=== PATIENT | female | born 1980 | race Caucasian/White ===

== ENCOUNTER 2016-03-06 19:13 | Emergency (ER) | payer BC ==
[~2016-03-06] VITALS: Ht 160 cm; Wt 104.5 kg
[~2016-03-06 19:13] MED LIST: AMBIEN 10MG10 MG PO; ATIVAN 0.50.5 MG/TAB PO; IMITREX100 MG PO; LAMICTAL200 MG PO; LEXAPRO20 MG PO; MULTI VITAMINS1 TAB PO; NORCO 325 MG-51 TAB PO; PHENERGAN 25 TA25 MG PO; PRILOSEC 20MG20 MG PO; PROZAC40 MG PO; XANAX .25M0.25 MG/TA PO; ZOFRAN 4MG T4 MG/TAB PO; ZOFRAN ODT4 MG PO
[2016-03-06 19:19] VITALS: TEMP 98
[2016-03-06] MEDS ORDERED: KLONOPIN 0.5MG0.5 MG PO ×2 (19:23)
[2016-03-06] MEDS ORDERED: DEPAKOTE 250MG250 MG PO (19:24)
[2016-03-06 20:17] LABS: BASO # 0.1 (0.0-0.2); BASO % 0.9 % (0.0-2.0); EOS # 0.1 (0.0-0.7); GRAN # 4.8 (1.4-6.5); GRAN % 58.2 % (42.2-75.2); HEMATOCRIT 37.9 % (37.0-47.0); HEMOGLOBIN 12.9 g/dl (12.5-16.0); LYMPH # 2.7 (1.2-3.4); LYMPH % 32.6 % (20.0-51.0); MEAN CELL VOLUME 93 fl (80.0-100.0); MEAN CORPUSCULAR HEMOGLOBIN 32 pg (27.0-31.0); MEAN CORPUSCULAR HGB CONC 34 g/dl (33.0-37.0); MEAN PLATELET VOLUME 11.2 fl (7.4-10.4); MONO # 0.6 (0.1-0.6); MONO % 7.1 % (1.7-9.3); PLATELET COUNT 250 K/mm3 (130-400); RED BLOOD COUNT 4.09 M/mm3 (4.10-5.30); REDCELL DISTRIBUTION WIDTH-CV 11.9 % (11.5-14.5); WHITE BLOOD COUNT 8.2 K/mm3 (4.8-10.8)
[2016-03-06 20:31] LABS: PH 5 (5-8); URINE APPEARANCE Hazy; URINE BACTERIA Rare /hpf; URINE BILIRUBIN Negative (NEGATIVE); URINE BLOOD Negative (NEGATIVE); URINE COLOR Yellow; URINE GLUCOSE Negative (NEGATIVE); URINE KETONE Trace (NEGATIVE); URINE RBC 0-2 /hpf; URINE UROBILINOGEN Negative (NEGATIVE)
[2016-03-06 20:32] LABS: ADJUSTED CALCIUM 9.1 mg/dL (8.4-10.2); ALBUMIN 3.9 gm/dL (3.5-5.0); BILIRUBIN,TOTAL 0.6 mg/dL (0.0-1.0); CREATININE, serum 0.77 mg/dL (0.52-1.25); POTASSIUM 3.6 mmol/L (3.4-5.0); TOTAL PROTEIN 6.7 gm/dL (6.4-8.2)
[2016-03-06 20:34] LABS: C-REACTIVE PROTEIN 0.5 mg/dL (0.0-0.9)
[2016-03-06] MEDS ORDERED: NORCO 325 MG-51 TAB PO (20:44)
[2016-03-06] MEDS ORDERED: FLEXERIL 1010 MG/TAB PO (20:44)
[2016-03-06 21:00] VITALS: BP 127/84; PULSE 87
== END 2016-03-06 21:01 | disposition home or self-care (01) ==
LOC: COL.ER 19:13
PROVIDERS: Emergency Medicine
DX: R10.84 Generalized abdominal pain (principal); M54.89 Other dorsalgia; R11.2 Nausea with vomiting, unspecified; Z98.84 Bariatric surgery status
CPT/HCPCS: J2765; J3010; J7030

== ENCOUNTER → 2016-04-06 | Outpatient (CLI) | payer BC ==
[~2016-04-06] MED LIST changes: +ATARAX50 MG PO; +DEPAKOTE 250MG250 MG PO; +DEPAKOTE500 MG PO; +FLEXERIL 1010 MG/TAB PO; +KLONOPIN 0.5MG0.5 MG PO; +LUVOX100 MG PO; +SYNTHROID0.05 MG/TA PO; +VITAMIN B-2 100MG
== END ==
LOC: BHSO 15:32
DX: F31.4 Bipolar disorder, current episode depressed, severe, without psychotic features (principal)

== ENCOUNTER → 2016-04-28 | Outpatient (CLI) | payer BC | LOC: BHSO 11:36 | DX: F31.32 Bipolar disorder, current episode depressed, moderate (principal) ==

== ENCOUNTER → 2016-05-16 | Outpatient (CLI) | payer BC | LOC: BHSO 12:46 | DX: F31.32 Bipolar disorder, current episode depressed, moderate (principal) ==

== ENCOUNTER → 2016-05-30 | Outpatient (CLI) | payer BC | LOC: BHSO 14:46 | DX: F31.81 Bipolar II disorder (principal) ==

== ENCOUNTER → 2016-06-08 | Outpatient (CLI) | payer BC | LOC: BHSO 14:51 | DX: F31.31 Bipolar disorder, current episode depressed, mild (principal) ==

== ENCOUNTER → 2016-07-07 | Outpatient (CLI) | payer BC | LOC: BHSO 10:43 | DX: F31.81 Bipolar II disorder (principal) ==

== ENCOUNTER → 2016-07-12 | Outpatient (CLI) | payer BC | LOC: BHSO 14:00 | DX: F31.31 Bipolar disorder, current episode depressed, mild (principal) ==

== ENCOUNTER → 2016-08-04 | Outpatient (CLI) | payer BC | LOC: BHSO 09:49 | DX: F33.2 Major depressive disorder, recurrent severe without psychotic features (principal) ==

== ENCOUNTER → 2016-08-07 | Outpatient (CLI) | payer BC | LOC: BHSO 11:03 | DX: F60.3 Borderline personality disorder (principal) ==

== ENCOUNTER 2016-08-13 23:32 | Emergency (ER) | payer BC ==
[~2016-08-13] VITALS: Ht 160 cm; Wt 97.7 kg
[~2016-08-13 23:32] MED LIST changes: -ATARAX50 MG PO; -DEPAKOTE500 MG PO; -LUVOX100 MG PO; -SYNTHROID0.05 MG/TA PO; -VITAMIN B-2 100MG
[2016-08-13 23:35] VITALS: TEMP 99
[2016-08-13 23:52] LABS: BASO # 0.1 (0.0-0.2); BASO % 0.5 % (0.0-2.0); EOS # 0.1 (0.0-0.7); EOS % 0.7 % (0-4.0); GRAN # 4.7 (1.4-6.5); GRAN % 49.3 % (42.2-75.2); HEMATOCRIT 38.8 % (37.0-47.0); HEMOGLOBIN 13.4 g/dl (12.5-16.0); LYMPH # 3.9 (1.2-3.4); LYMPH % 40.3 % (20.0-51.0); MEAN CELL VOLUME 90 fl (80.0-100.0); MEAN CORPUSCULAR HEMOGLOBIN 31 pg (27.0-31.0); MEAN CORPUSCULAR HGB CONC 35 g/dl (33.0-37.0); MEAN PLATELET VOLUME 10.8 fl (7.4-10.4); MONO # 0.9 (0.1-0.6); MONO % 8.8 % (1.7-9.3); PLATELET COUNT 227 K/mm3 (130-400); RED BLOOD COUNT 4.33 M/mm3 (4.10-5.30); WHITE BLOOD COUNT 9.6 K/mm3 (4.8-10.8)
[2016-08-14 00:02] LABS: ADJUSTED CALCIUM 8.8 mg/dL (8.4-10.2); ALANINE AMINOTRANSFERASE 21 U/L (9-52); ALBUMIN 3.9 gm/dL (3.5-5.0); ALKALINE PHOSPHATASE 38 U/L (50-136); ANION GAP 11 mmol/L (7-16); BILIRUBIN,TOTAL 0.5 mg/dL (0.0-1.0); BLOOD UREA NITROGEN 21 mg/dL (7-17); CALCIUM 8.7 mg/dL (8.4-10.2); CARBON DIOXIDE 21 mmol/L (22-30); CHLORIDE 105 mmol/L (98-107); CREATININE, serum 1.19 mg/dL (0.52-1.25); GLUCOSE 98 mg/dL (74-106); POTASSIUM 4.2 mmol/L (3.4-5.0); SODIUM 137 mmol/L (137-145); TOTAL PROTEIN 6.5 gm/dL (6.4-8.2)
[2016-08-14] MEDS ORDERED: AMBIEN 10MG10 MG PO (00:02)
[2016-08-14] MEDS ORDERED: ATARAX50 MG PO (00:02)
[2016-08-14] MEDS ORDERED: KLONOPIN 0.5MG0.5 MG PO ×2 (00:03)
[2016-08-14] MEDS ORDERED: LUVOX100 MG PO (00:04)
[2016-08-14] MEDS ORDERED: DEPAKOTE500 MG PO (00:04)
[2016-08-14] MEDS ORDERED: VITAMIN B-2 100MG (00:05)
[2016-08-14 00:06] LABS: SALICYLATE < 1.0 mg/dL
[2016-08-14 00:08] LABS: ACETAMINOPHEN 59 ug/mL (10-30)
[2016-08-14 00:23] LABS: INR 0.9 (0.8-3.0); PROTHROMBIN TIME 10.2 SECONDS (9.7-12.8)
[2016-08-14 00:43] LABS: AMPHETAMINE URINE NEGATIVE; BARBITURATES URINE NEGATIVE; BENZODIAZEPINES URINE NEGATIVE; BUPRENORPHINE URINE NEGATIVE; METHADONE URINE NEGATIVE; OPIATES URINE NEGATIVE; OXYCODONE URINE NEGATIVE; PHENCYCLIDINE URINE NEGATIVE; PROPOXYPHENE URINE NEGATIVE; THC CANNABINOIDS URINE NEGATIVE
[2016-08-14 04:18] VITALS: BP 100/80; PULSE 94
[2016-08-14] MEDS ORDERED: SYNTHROID0.05 MG/TA PO (04:33)
== END 2016-08-14 04:44 | disposition home or self-care (01) ==
LOC: COL.ER 23:32
PROVIDERS: Nurse Practitioner
DX: T39.1X2A Poisoning by 4-Aminophenol derivatives, intentional self-harm, initial encounter (principal); F32.9 Major depressive disorder, single episode, unspecified; E03.9 Hypothyroidism, unspecified
CPT/HCPCS: J7030

== ENCOUNTER → 2016-08-22 | Outpatient (CLI) | payer BC ==
[~2016-08-22] MED LIST changes: +ATARAX50 MG PO; +DEPAKOTE500 MG PO; +LUVOX100 MG PO; +SYNTHROID0.05 MG/TA PO; +VITAMIN B-2 100MG
== END ==
LOC: BHSO 08:58
DX: F31.31 Bipolar disorder, current episode depressed, mild (principal)

== ENCOUNTER → 2016-08-28 | Outpatient (CLI) | payer BC | LOC: BHSO 14:26 | DX: F31.73 Bipolar disorder, in partial remission, most recent episode manic (principal) ==

== ENCOUNTER → 2016-09-08 | Outpatient (CLI) | payer BC | LOC: BHSO 14:01 | DX: F31.31 Bipolar disorder, current episode depressed, mild (principal) ==

== ENCOUNTER → 2016-09-22 | Outpatient (CLI) | payer BC | LOC: BHSO 13:54 | DX: F31.31 Bipolar disorder, current episode depressed, mild (principal) ==

== ENCOUNTER → 2016-09-25 | Outpatient (CLI) | payer BC | LOC: BHSO 15:19 | DX: F31.81 Bipolar II disorder (principal) ==

== ENCOUNTER → 2016-10-13 | Outpatient (CLI) | payer BC | LOC: BHSO 13:57 | DX: F31.31 Bipolar disorder, current episode depressed, mild (principal) ==

== ENCOUNTER → 2016-10-20 | Outpatient (CLI) | payer BC | LOC: BHSO 13:58 | DX: F31.31 Bipolar disorder, current episode depressed, mild (principal) ==

== ENCOUNTER → 2016-11-01 | Outpatient (CLI) | payer BC | LOC: BHSO 15:40 | DX: F31.81 Bipolar II disorder (principal) ==

== ENCOUNTER → 2016-11-28 | Outpatient (CLI) | payer BC | LOC: BHSO 09:06 | DX: F31.81 Bipolar II disorder (principal) ==

== ENCOUNTER 2016-12-16 10:24 | Observation (INO) | payer BC ==
[~2016-12-16] VITALS: Ht 162.6 cm; Wt 113.2 kg
[2016-12-16] VITALS (374 sets, daily range): BP systolic 118–121; BP diastolic 80–90; PULSE 96–100; TEMP 97.8–98.1; O2SAT 96–100
[2016-12-16 10:50] LABS: BASO % 0.5 % (0.0-2.0); EOS % 0.3 % (0-4.0); GRAN # 3.8 (1.4-6.5); HEMATOCRIT 39.7 % (37.0-47.0); HEMOGLOBIN 13.3 g/dl (12.5-16.0); LYMPH # 2.3 (1.2-3.4); LYMPH % 35.3 % (20.0-51.0); MEAN CELL VOLUME 94 fl (80.0-100.0); MEAN CORPUSCULAR HEMOGLOBIN 32 pg (27.0-31.0); MEAN CORPUSCULAR HGB CONC 34 g/dl (33.0-37.0); MEAN PLATELET VOLUME 11.2 fl (7.4-10.4); MONO # 0.3 (0.1-0.6); MONO % 5.1 % (1.7-9.3); PLATELET COUNT 201 K/mm3 (130-400); RED BLOOD COUNT 4.21 M/mm3 (4.10-5.30); REDCELL DISTRIBUTION WIDTH-CV 13.2 % (11.5-14.5); WHITE BLOOD COUNT 6.5 K/mm3 (4.8-10.8)
[2016-12-16 11:47] LABS: ALANINE AMINOTRANSFERASE 15 U/L (9-52); ALKALINE PHOSPHATASE 41 U/L (50-136); ANION GAP 13 mmol/L (7-16); BILIRUBIN,TOTAL 0.6 mg/dL (0.0-1.0); BLOOD UREA NITROGEN 11 mg/dL (7-17); CARBON DIOXIDE 20 mmol/L (22-30); CHLORIDE 106 mmol/L (98-107); CREATININE, serum 0.98 mg/dL (0.52-1.25); GLUCOSE 112 mg/dL (74-106); MAGNESIUM 1.7 mg/dL (1.6-2.3); POTASSIUM 3.4 mmol/L (3.4-5.0); SODIUM 139 mmol/L (137-145); TOTAL PROTEIN 6.8 gm/dL (6.4-8.2)
[2016-12-16 11:54] LABS: ACETAMINOPHEN < 10 ug/mL (10-30); SALICYLATE < 1.0 mg/dL
[2016-12-16 13:56] LABS: AMPHETAMINE URINE NEGATIVE; BARBITURATES URINE NEGATIVE; BENZODIAZEPINES URINE NEGATIVE; BUPRENORPHINE URINE NEGATIVE; METHADONE URINE NEGATIVE; OPIATES URINE NEGATIVE; OXYCODONE URINE NEGATIVE; PHENCYCLIDINE URINE NEGATIVE; PROPOXYPHENE URINE NEGATIVE; THC CANNABINOIDS URINE NEGATIVE
[2016-12-16] MEDS ORDERED: DEPAKOTE ER 50500 MG PO (14:36)
[2016-12-16] MEDS ORDERED: SEROQUEL 200MG200 MG PO (14:39)
[2016-12-16] MEDS ORDERED: DESYREL 100MG100 MG PO (14:40)
[2016-12-16] MEDS ORDERED: NEURONTIN300 MG/CAP PO (14:40)
[2016-12-16] MEDS ORDERED: KRILL OIL 3001 EACH PO (14:41)
[2016-12-16] MEDS ORDERED: BIOTIN10000 MC1 PO (14:42)
[2016-12-17] VITALS (418 sets, daily range): BP systolic 98–113; BP diastolic 57–69; PULSE 78–94; TEMP 97.2–97.7; O2SAT 94–100
[2016-12-17] MEDS ORDERED: EFFEXOR 75M75 MG/TAB PO (11:55)
[2016-12-17] MEDS ORDERED: VALIUM 10MG10 MG/TAB PO (11:55)
== END 2016-12-17 13:45 | disposition home or self-care (01) ==
LOC: COL.ER 10:24 → ICU 13:50
PROVIDERS: Emergency Medicine
DX: T45.0X2A Poisoning by antiallergic and antiemetic drugs, intentional self-harm, initial encounter (principal); F32.9 Major depressive disorder, single episode, unspecified; M79.605 Pain in left leg; Z86.718 Personal history of other venous thrombosis and embolism; F31.89 Other bipolar disorder; F41.1 Generalized anxiety disorder; F60.3 Borderline personality disorder; F40.01 Agoraphobia with panic disorder
CPT/HCPCS: 99239; G0378; J1650; J7030

== ENCOUNTER → 2016-12-22 | Outpatient (CLI) | payer BC ==
[~2016-12-22] MED LIST changes: +BIOTIN10000 MC1 PO; +DEPAKOTE ER 50500 MG PO; +DESYREL 100MG100 MG PO; +EFFEXOR 75M75 MG/TAB PO; +KRILL OIL 3001 EACH PO; +NEURONTIN300 MG/CAP PO; +SEROQUEL 200MG200 MG PO; +VALIUM 10MG10 MG/TAB PO
== END ==
LOC: BHSO 11:17
DX: F31.81 Bipolar II disorder (principal)

== ENCOUNTER → 2016-12-25 | Outpatient (CLI) | payer BC | LOC: BHSO 15:58 | DX: F60.3 Borderline personality disorder (principal) ==

== ENCOUNTER → 2017-01-23 | Outpatient (CLI) | payer BC | LOC: BHSO 10:00 | DX: F31.31 Bipolar disorder, current episode depressed, mild (principal) ==

== ENCOUNTER → 2017-01-24 | Outpatient (CLI) | payer BC | LOC: BHSO 13:28 | DX: F31.81 Bipolar II disorder (principal) ==

== ENCOUNTER → 2017-03-12 | Outpatient (CLI) | payer OTHER | LOC: COL.RAD 09:25 | DX: Z02.71 Encounter for disability determination (principal); M51.36 Other intervertebral disc degeneration, lumbar region; M51.34 Other intervertebral disc degeneration, thoracic region ==

== ENCOUNTER → 2017-03-14 | Outpatient (CLI) | payer BC | LOC: BHSO 10:55 | DX: F33.2 Major depressive disorder, recurrent severe without psychotic features (principal) ==

== ENCOUNTER → 2017-03-20 | Outpatient (CLI) | payer BC | LOC: BHSO 15:15 | DX: F31.81 Bipolar II disorder (principal) | CPT/HCPCS: G0463 ==

== ENCOUNTER → 2017-03-27 | Outpatient (CLI) | payer BC | LOC: BHSO 13:02 | DX: F31.31 Bipolar disorder, current episode depressed, mild (principal) ==

== ENCOUNTER → 2017-04-04 | Outpatient (CLI) | payer BC | LOC: BHSO 10:48 | DX: F31.31 Bipolar disorder, current episode depressed, mild (principal) ==

== ENCOUNTER 2017-04-15 19:14 | Emergency (ER) | payer BC ==
[~2017-04-15] VITALS: Ht 162.6 cm; Wt 122.7 kg
[2017-04-15 19:20] VITALS: TEMP 97.8
[2017-04-15] MEDS ORDERED: LIORESAL 1010 MG/TAB PO (22:18)
[2017-04-15 22:30] VITALS: BP 137/86; PULSE 101
== END 2017-04-15 22:30 | disposition home or self-care (01) ==
LOC: COL.ER 19:14
DX: G89.29 Other chronic pain (principal); M54.5 Low back pain; M62.830 Muscle spasm of back; F31.9 Bipolar disorder, unspecified; F41.9 Anxiety disorder, unspecified; E03.9 Hypothyroidism, unspecified; Z87.39 Personal history of other diseases of the musculoskeletal system and connective tissue; Z98.51 Tubal ligation status; Z90.89 Acquired absence of other organs; Z98.890 Other specified postprocedural states; X50.0XXA Overexertion from strenuous movement or load, initial encounter
CPT/HCPCS: J1170

== ENCOUNTER → 2017-04-17 | Outpatient (CLI) | payer BC ==
[~2017-04-17] MED LIST changes: +LIORESAL 1010 MG/TAB PO
== END ==
LOC: BHSO 13:56
DX: F31.31 Bipolar disorder, current episode depressed, mild (principal)

== ENCOUNTER → 2017-05-08 | Outpatient (CLI) | payer BC | LOC: MHCPAIN 11:26 | DX: G89.29 Other chronic pain (principal); M47.817 Spondylosis without myelopathy or radiculopathy, lumbosacral region; M53.3 Sacrococcygeal disorders, not elsewhere classified; M25.561 Pain in right knee | CPT/HCPCS: G0463 ==

== ENCOUNTER → 2017-05-30 | Outpatient (CLI) | payer BC | LOC: BHSO 13:58 | DX: F31.31 Bipolar disorder, current episode depressed, mild (principal) ==

== ENCOUNTER → 2017-07-03 | Outpatient (CLI) | payer BC | LOC: MHCPAIN 12:46 | DX: G89.29 Other chronic pain (principal); M47.817 Spondylosis without myelopathy or radiculopathy, lumbosacral region; M53.3 Sacrococcygeal disorders, not elsewhere classified; M25.561 Pain in right knee | CPT/HCPCS: G0463 ==

== ENCOUNTER → 2017-07-06 | Outpatient (CLI) | payer BC | LOC: BHSO 09:22 | DX: F31.81 Bipolar II disorder (principal) | CPT/HCPCS: G0463 ==

== ENCOUNTER → 2017-07-09 | Outpatient (CLI) | payer BC | LOC: BHSO 16:03 | DX: F31.11 Bipolar disorder, current episode manic without psychotic features, mild (principal) ==

== ENCOUNTER → 2017-07-19 | Outpatient (CLI) | payer BC | LOC: MHCPAIN 09:58 | DX: M47.817 Spondylosis without myelopathy or radiculopathy, lumbosacral region (principal); M46.96 Unspecified inflammatory spondylopathy, lumbar region | CPT/HCPCS: J1040; J2250; J3010; Q9967 ==

== ENCOUNTER → 2017-08-17 | Outpatient (CLI) | payer BC | LOC: BHSO 14:52 | DX: F31.11 Bipolar disorder, current episode manic without psychotic features, mild (principal) ==

== ENCOUNTER → 2017-10-11 | Outpatient (CLI) | payer BC | LOC: BHSO 14:33 | DX: F31.81 Bipolar II disorder (principal) | CPT/HCPCS: G0463 ==

== ENCOUNTER → 2017-10-15 | Outpatient (CLI) | payer BC | LOC: BHSO 13:52 | DX: F31.31 Bipolar disorder, current episode depressed, mild (principal) ==

== ENCOUNTER → 2017-10-22 | Outpatient (CLI) | payer BC | LOC: BHSO 13:55 | DX: F31.11 Bipolar disorder, current episode manic without psychotic features, mild (principal) ==

== ENCOUNTER → 2017-10-30 | Outpatient (CLI) | payer BC | LOC: BHSO 13:48 | DX: F31.31 Bipolar disorder, current episode depressed, mild (principal) ==

== ENCOUNTER → 2017-11-06 | Outpatient (CLI) | payer BC | LOC: BHSO 13:55 | DX: F31.31 Bipolar disorder, current episode depressed, mild (principal) ==

== ENCOUNTER → 2017-11-28 | Outpatient (CLI) | payer BC | LOC: MHCPAIN 13:38 | DX: G89.29 Other chronic pain (principal); M47.817 Spondylosis without myelopathy or radiculopathy, lumbosacral region; M53.3 Sacrococcygeal disorders, not elsewhere classified | CPT/HCPCS: G0463 ==

== ENCOUNTER → 2017-12-03 | Outpatient (CLI) | payer BC ==
[~2017-12-03] MED LIST changes: +BELSOMRA20 MG PO; +PERCOCET 325 MG1 TA2 PO; +PRAVACHOL 40MG40 MG PO; +VOLTAREN 75 DR75 MG PO
== END ==
LOC: BHSO 13:57
DX: F31.11 Bipolar disorder, current episode manic without psychotic features, mild (principal)

== ENCOUNTER → 2017-12-04 | Outpatient (CLI) | payer BC | LOC: BHSO 14:13 | DX: F31.81 Bipolar II disorder (principal) | CPT/HCPCS: G0463 ==

== ENCOUNTER 2017-12-10 09:58 | Emergency (ER) | payer BC ==
[~2017-12-10] VITALS: Ht 162.6 cm; Wt 125.5 kg
[~2017-12-10 09:58] MED LIST changes: -BELSOMRA20 MG PO; -PERCOCET 325 MG1 TA2 PO; -PRAVACHOL 40MG40 MG PO; -VOLTAREN 75 DR75 MG PO
[2017-12-10 10:02] VITALS: TEMP 98.5
[2017-12-10] MEDS ORDERED: BELSOMRA20 MG PO (10:19)
[2017-12-10] MEDS ORDERED: PRAVACHOL 40MG40 MG PO (10:19)
[2017-12-10 10:44] LABS: BASO % 0.7 % (0.0-2.0); EOS # 0.1 (0.0-0.7); EOS % 1.5 % (0-4.0); GRAN # 2.7 (1.4-6.5); GRAN % 49.7 % (42.2-75.2); HEMOGLOBIN 11.7 g/dl (12.5-16.0); LYMPH # 2.1 (1.2-3.4); LYMPH % 39.4 % (20.0-51.0); MEAN CELL VOLUME 97 fl (80.0-100.0); MEAN CORPUSCULAR HEMOGLOBIN 32 pg (27.0-31.0); MEAN CORPUSCULAR HGB CONC 33 g/dl (33.0-37.0); MEAN PLATELET VOLUME 11.4 fl (7.4-10.4); MONO # 0.4 (0.1-0.6); MONO % 7.8 % (1.7-9.3); PLATELET COUNT 195 K/mm3 (130-400); RED BLOOD COUNT 3.64 M/mm3 (4.10-5.30); REDCELL DISTRIBUTION WIDTH-CV 12.3 % (11.5-14.5)
[2017-12-10 10:46] LABS: HEMATOCRIT 35.4 % (37.0-47.0)
[2017-12-10 10:49] LABS: INR 0.9 (0.8-3.0); PROTHROMBIN TIME 9.8 SECONDS (9.7-12.8)
[2017-12-10 10:52] LABS: PARTIAL THROMBOPLASTIN TIME 29.3 SECONDS (26.0-37.0)
[2017-12-10 10:55] LABS: D-DIMER < 200.00 ng/mLDDu (200-230)
[2017-12-10 10:59] LABS: ALANINE AMINOTRANSFERASE 19 U/L (9-52); ALBUMIN 3.4 gm/dL (3.5-5.0); ALKALINE PHOSPHATASE 41 U/L (50-136); ANION GAP 5 mmol/L (7-16); AST,SGOT 17 U/L (15-37); BILIRUBIN,TOTAL 0.2 mg/dL (0.0-1.0); BLOOD UREA NITROGEN 9 mg/dL (7-17); CALCIUM 8.6 mg/dL (8.4-10.2); CARBON DIOXIDE 30 mmol/L (22-30); CHLORIDE 102 mmol/L (98-107); CREATININE, serum 0.76 mg/dL (0.52-1.25); GLUCOSE 88 mg/dL (74-106); POTASSIUM 3.9 mmol/L (3.4-5.0); SODIUM 137 mmol/L (137-145); TOTAL PROTEIN 6.1 gm/dL (6.4-8.2)
[2017-12-10 11:11] LABS: TROPONIN-I < 0.012 ng/mL (0.000-0.034)
[2017-12-10] MEDS ORDERED: PERCOCET 325 MG1 TA2 PO (14:49)
[2017-12-10] MEDS ORDERED: VOLTAREN 75 DR75 MG PO (14:58)
[2017-12-10 15:06] VITALS: BP 117/79; PULSE 79
== END 2017-12-10 15:06 | disposition home or self-care (01) ==
LOC: COL.ER 09:58
PROVIDERS: Family Medicine
DX: R07.9 Chest pain, unspecified (principal); F32.9 Major depressive disorder, single episode, unspecified; F41.9 Anxiety disorder, unspecified; E78.5 Hyperlipidemia, unspecified
CPT/HCPCS: J1885

== ENCOUNTER → 2018-01-04 | Outpatient (CLI) | payer BC ==
[~2018-01-04] MED LIST changes: +BELSOMRA20 MG PO; +PERCOCET 325 MG1 TA2 PO; +PRAVACHOL 40MG40 MG PO; +VOLTAREN 75 DR75 MG PO
== END ==
LOC: BHSO 15:03
DX: F31.81 Bipolar II disorder (principal)

== ENCOUNTER → 2018-01-17 | Outpatient (CLI) | payer BC | LOC: MHCPAIN 13:11 | DX: M47.817 Spondylosis without myelopathy or radiculopathy, lumbosacral region (principal); M54.16 Radiculopathy, lumbar region ==

== ENCOUNTER → 2018-01-22 | Outpatient (CLI) | payer BC | LOC: MHCPAIN 07:57 | DX: G89.29 Other chronic pain (principal); M47.817 Spondylosis without myelopathy or radiculopathy, lumbosacral region; M53.3 Sacrococcygeal disorders, not elsewhere classified | CPT/HCPCS: G0463 ==

== ENCOUNTER → 2018-02-01 | Outpatient (CLI) | payer BC | LOC: BHSO 14:59 | DX: F31.11 Bipolar disorder, current episode manic without psychotic features, mild (principal) ==

== ENCOUNTER → 2018-02-04 | Outpatient (CLI) | payer BC | LOC: MHCPAIN 10:40 | DX: M47.817 Spondylosis without myelopathy or radiculopathy, lumbosacral region (principal); M54.16 Radiculopathy, lumbar region | CPT/HCPCS: J1100; J2250; J3010 ==

== ENCOUNTER → 2018-02-07 | Outpatient (CLI) | payer BC | LOC: MHCPAIN 09:40 | DX: M47.817 Spondylosis without myelopathy or radiculopathy, lumbosacral region (principal); M54.16 Radiculopathy, lumbar region | CPT/HCPCS: J1100; J2250; J3010 ==

== ENCOUNTER → 2018-02-14 | Outpatient (CLI) | payer BC | LOC: BHSO 12:44 | DX: F31.11 Bipolar disorder, current episode manic without psychotic features, mild (principal) ==

== ENCOUNTER → 2018-03-01 | Outpatient (CLI) | payer BC | LOC: BHSO 15:26 | DX: F31.81 Bipolar II disorder (principal) | CPT/HCPCS: G0463 ==

== ENCOUNTER 2018-04-03 14:09 | Outpatient (RCR) | payer BC | END 2018-07-02 | disposition home or self-care (01) | LOC: WSC → WSPT 14:15 | DX: Z47.89 Encounter for other orthopedic aftercare (principal) ==